=== PATIENT | female | born 1990 | race Caucasian/White ===

== ENCOUNTER 2023-09-07 19:13 | Emergency (ER) | payer MEDICAID ==
[~2023-09-07] VITALS: Ht 157.5 cm; Wt 118.3 kg
[2023-09-07] MEDS ORDERED: SUMA25TA35 PO (20:44)
[2023-09-07] MEDS ORDERED: LAMO25TA4 PO (20:44)
[2023-09-07] MEDS ORDERED: PROP10TA10 PO (20:44)
[2023-09-07] MEDS ORDERED: PANT-47 PO (20:44)
[2023-09-07] MEDS ORDERED: LORA-269 PO (20:44)
[2023-09-07] MEDS ORDERED: DICY10CA88 PO (20:44)
[2023-09-07 21:04] LABS: BASOPHILS # (AUTO) 0.1 X10'3 (0-0.2); BASOPHILS % (AUTO) 0.6 % (0-1); EOSINOPHILS # (AUTO) 0.1 X10'3 (0-0.9); EOSINOPHILS % (AUTO) 0.8 % (0-6); HEMATOCRIT 39.3 % (35.0-45.0); HEMOGLOBIN 13.5 g/dl (12.0-16.0); LYMPHOCYTES # (AUTO) 2.6 X10'3 (1.1-4.8); LYMPHOCYTES % (AUTO) 27.1 % (21-51); MEAN CORPUSCULAR HEMOGLOBIN 30.5 PG (27.0-31.0); MEAN CORPUSCULAR HGB CONC 34.4 g/dL (33.0-36.5); MEAN CORPUSCULAR VOLUME 88.8 FL (78-98); MEAN PLATELET VOLUME 7.9 FL (7.4-10.4); MONOCYTES # (AUTO) 0.6 X10'3 (0-0.9); MONOCYTES % (AUTO) 6.6 % (2-12); NEUTROPHILS # (AUTO) 6.2 X10'3 (1.8-7.7); NEUTROPHILS % (AUTO) 64.9 % (42-75); PLATELET COUNT 316 X10'3 (140-440); RED BLOOD COUNT 4.43 X10'6 (4.20-5.60); WHITE BLOOD COUNT 9.5 X10'3 (4.5-11.0)
[2023-09-07 21:09] LABS: BILIRUBIN,URINE NEGATIVE (Neg); CLARITY,URINE CLEAR (Clear); COLOR,URINE YELLOW (Yellow); GLUCOSE, URINE NEGATIVE (Neg); KETONES,URINE NEGATIVE (Neg); LEUKOCYTE ESTERASE ,URINE TRACE (Neg); NITRITES, URINE NEGATIVE (Neg); OCCULT BLOOD,URINE NEGATIVE (Neg); PROTEIN,URINE NEGATIVE (Neg); URINE HCG NEGATIVE (NEG); UROBILINOGEN,URINE 0.2 E.U/dL (0.2-1.0)
[2023-09-07 21:10] LABS: UA COLLECTION TYPE NON-SPECIFIED
[2023-09-07 21:15] LABS: BACTERIA,URINE 1+ /HPF (Neg); MUCUS STRANDS MANY /LPF (Neg); RBC,URINE 0-2 /HPF (0-2); SQUAMOUS EPITHELIAL CELL,UR MANY /LPF (FEW); WBC,URINE 0-4 /HPF (0-4)
[2023-09-07 21:23] LABS: ALANINE AMINOTRANSFERASE 21 U/L (12-78); ALBUMIN 3.4 G/DL (3.4-5.0); ALBUMIN/GLOBULIN RATIO 0.8 (1.1-1.5); ALKALINE PHOSPHATASE 69 IU/L (46-116); ANION GAP 6 (8-16); ASPARTATE AMINO TRANSFERASE 12 U/L (10-37); BILIRUBIN,TOTAL 0.3 MG/DL (0.1-1.0); BLOOD UREA NITROGEN 12 MG/DL (7-18); BUN/CREATININE RATIO 18.5 (10.0-20.0); CALCIUM 8.8 MG/DL (8.5-10.1); CHLORIDE 105 MMOL/L (99-107); CREATININE 0.65 MG/DL (0.40-0.90); GLUCOSE 116 MG/DL (70-104); POTASSIUM 3.5 MMOL/L (3.5-5.1); SODIUM 138 MMOL/L (135-145); TOTAL CARBON DIOXIDE 27.1 MMOL/L (24-32); TOTAL PROTEIN 7.6 G/DL (6.4-8.2); eCRCL 98 ML/MIN; eGFR > 90 ML/MIN
[2023-09-07 21:28] LABS: ETHANOL < 10 MG/DL (<10); THYROID STIMULATING HORMONE 1.28 ulU/ml (0.34-4.50)
[2023-09-07 21:29] LABS: URINE AMPHETAMINE SCREEN NEGATIVE (Neg); URINE BARBITUATE SCREEN NEGATIVE (Neg); URINE BENZODIAZEPINES SCREEN NEGATIVE (Neg); URINE CANNABINOID SCREEN POSITIVE (Neg); URINE COCAINE SCREEN NEGATIVE (Neg); URINE METHADONE SCREEN NEGATIVE (Neg); URINE PHENCYCLIDINE SCREEN NEGATIVE (Neg)
[2023-09-07] MEDS ORDERED: dicyclomine 10 MG capsule PO PRN (23:30)
[2023-09-07] MEDS ORDERED: LORazepam 1 MG tablet PO PRN (23:30)
[2023-09-07] MEDS ORDERED: SUMAtriptan 25 MG tablet PO PRN (23:30)
[2023-09-07] MEDS: diazepam 5mg tablet PO ONE (23:40)
[2023-09-07 23:59] VITALS: PULSE 81; RESP 16; O2SAT 97
[2023-09-08 02:49] VITALS: PULSE 71; RESP 17; O2SAT 92
[2023-09-08 05:47] VITALS: BP 123/67; PULSE 71; TEMP 96.9; O2SAT 98
[2023-09-08 08:20] VITALS: RESP 17
[2023-09-08] MEDS ORDERED: propranolol 10mg tablet PO SCH (21:00)
[2023-09-08] MEDS ORDERED: lamoTRIgine 25mg tablet PO SCH (21:00)
[2023-09-08] MEDS ORDERED: pantoprazole 40mg Tablet.DR PO SCH (21:00)
== END 2023-09-08 14:29 | disposition home or self-care (01) ==
LOC: ER 19:14
DX: F31.9 Bipolar disorder, unspecified (principal); Z20.822 Contact with and (suspected) exposure to COVID-19; F41.9 Anxiety disorder, unspecified; G47.30 Sleep apnea, unspecified; Z88.0 Allergy status to penicillin; Z88.8 Allergy status to other drugs, medicaments and biological substances
CPT/HCPCS: 36415; 80053; 80305; 80320; 81001; 81025; 84443; 85025; 87811; 94660; 94760; 99284